=== PATIENT | female | born 1965 | race African-American/Black ===

== ENCOUNTER 2019-12-09 17:40 | Inpatient (IN) | payer OTHER, MEDICAID ==
[~2019-12-09] VITALS: Ht 167.6 cm; Wt 188.0 kg
[2019-12-09] MEDS ORDERED: SODIUM CHLORIDE 0.9% 500 ML IVB ONE (18:31)
[2019-12-09] MEDS ORDERED: ONDANSETRON HCL 4 MG/2 ML VIAL IV ONE (18:45)
[2019-12-09] MEDS ORDERED: HYDROmorphone HCL 2 MG/ML VL IV ONE (18:45)
[2019-12-09 19:21] LABS: Basophils # (auto) 0.1 10 ^3/uL (0-0.2); Basophils % (auto) 0.9 % (0.0-2.0); Eosinophils # (auto) 0.2 10 ^3/uL (0-0.8); Hematocrit 39.3 % (36.0-46.0); Hemoglobin 12.7 g/dL (12.2-16.2); Lymphocytes # (auto) 1.1 10 ^3/uL (0.4-5.4); Lymphocytes % (auto) 14.9 % (10.0-50.0); Mean Corpuscular Hemoglobin 24.6 pg (28.0-32.0); Mean Corpuscular Hgb Conc. 32.4 g/dL (32.0-36.0); Mean Corpuscular Volume 76.1 fL (80.0-100.0); Monocytes # (auto) 0.5 10 ^3/uL (0-1.3); Monocytes % (auto) 6.7 % (0.0-12.0); Neutrophils # (auto) 5.4 10 ^3/uL (1.6-8.6); Neutrophils % (auto) 74.5 % (37.0-80.0); Platelet Count (auto) 276 10^3/uL (140-450); Red Blood Cells 5.17 10^6/uL (4.0-5.20); Red Cell Distribution Width 16.2 % (11.8-14.3); White Blood Cell 7.3 10^3/uL (4.4-10.8)
[2019-12-09 19:41] LABS: Albumin 3.1 g/dL (3.4-5.0); Potassium 3.8 mmol/L (3.5-5.1)
[2019-12-09 19:45] LABS: BUN/Creatinine Ratio 6.7; Bilirubin, Total 0.5 mg/dL (0.2-1.0); Total Protein 6.9 g/dL (6.4-8.2)
[2019-12-09] MEDS ORDERED: NITROGLYCERIN 0.4 MG SL TAB SL PRN (21:45)
[2019-12-09] MEDS ORDERED: ONDANSETRON HCL 4 MG/2 ML VIAL IV PRN (21:45)
[2019-12-09] MEDS ORDERED: DEXTROSE (50%) 50ML SYRG IV PRN (21:45)
[2019-12-09] MEDS ORDERED: ACETAMINOPHEN 325 MG TAB PO PRN (21:45)
[2019-12-09] MEDS ORDERED: MORPHINE SULF INJ 2 MG/ML SYRINGE 1ML IV PRN (21:45)
[2019-12-09] MEDS ORDERED: cloNIDine HCL 0.1 MG TAB PO PRN (21:45)
[2019-12-09] MEDS ORDERED: TEMAZEPAM 15 MG CAP PO PRN (21:45)
[2019-12-09 22:20] LABS: Urine Bacteria NONE SEEN /hpf (None Seen); Urine Blood TRACE /uL (Negative); Urine Mucus FEW (None Seen); Urine Specific Gravity 1.018 (1.001-1.035); Urine WBC 5 /hpf (0 - 5)
[2019-12-09] MEDS: ACCU-CHEK COMFORT CURVE STRIP VI SCH (22:46)
[2019-12-09] MEDS: InsuLIN REG 1unit/0.01ml Soln (100units/ml) SC SCH (22:49)
[2019-12-09] MEDS: MORPHINE SULF INJ 2 MG/ML SYRINGE 1ML IV PRN (22:56)
[2019-12-10] VITALS (9 sets, daily range): BP systolic 134–174; BP diastolic 73–98
--- NOTE | 2019-12-10 01:00 | NUR ---
Telemetry admit from ER ALDO LEE admitted to Telemetry unit after SBAR received. Patient oriented to Candelaria Brown, primary RN, unit, room, bed, and unit policies regarding patient care and visiting hours. Patient now on continuous telemetry monitoring, tele box # [id number] and telemetry reading on arrival to unit is . Patient placed on bedside oxygen, weighed by bedscale and encouraged to call if they need something. All questions and concerns addressed, patient verbalized understanding. Note:
[2019-12-10] MEDS ORDERED: FAMO20TA10 PO (01:56)
[2019-12-10] MEDS ORDERED: GLIP5TAB12 PO (01:56)
[2019-12-10] MEDS ORDERED: ATO40T PO (01:56)
[2019-12-10] MEDS ORDERED: TIOT1AER IN (01:56)
[2019-12-10] MEDS ORDERED: LOSA-39 PO (01:56)
[2019-12-10] MEDS ORDERED: TRIA50TA2 PO (01:56)
[2019-12-10] MEDS ORDERED: GABA100C PO (01:56)
[2019-12-10] MEDS ORDERED: MONT10TA34 PO (01:56)
[2019-12-10] MEDS ORDERED: AMLO5TAB15 PO (01:56)
[2019-12-10] MEDS: HYDROcodone-ACET 5/325MG TAB PO PRN ×3 (02:00→16:08)
[2019-12-10 06:02] LABS: Basophils # (auto) 0.1 10 ^3/uL (0-0.2); Eosinophils # (auto) 0.2 10 ^3/uL (0-0.8); Lymphocytes # (auto) 1.6 10 ^3/uL (0.4-5.4); Mean Corpuscular Hgb Conc. 31.9 g/dL (32.0-36.0); Mean Corpuscular Volume 76.6 fL (80.0-100.0); Monocytes # (auto) 0.6 10 ^3/uL (0-1.3); Monocytes % (auto) 8.2 % (0.0-12.0); Neutrophils # (auto) 4.9 10 ^3/uL (1.6-8.6); Nucleated Red Blood Cells % 0.1 %
[2019-12-10 06:05] LABS: Eosinophils % (auto) 2.8 % (0.0-7.0); Hematocrit 36.9 % (36.0-46.0); Hemoglobin 11.8 g/dL (12.2-16.2); Lymphocytes % (auto) 21.8 % (10.0-50.0); Mean Corpuscular Hemoglobin 24.4 pg (28.0-32.0); Neutrophils % (auto) 66.2 % (37.0-80.0); Platelet Count (auto) 265 10^3/uL (140-450); Red Blood Cells 4.82 10^6/uL (4.0-5.20); Red Cell Distribution Width 16.3 % (11.8-14.3); White Blood Cell 7.4 10^3/uL (4.4-10.8)
[2019-12-10] MEDS: InsuLIN REG 1unit/0.01ml Soln (100units/ml) SC SCH ×4 (06:09→22:31)
[2019-12-10] MEDS: ACCU-CHEK COMFORT CURVE STRIP VI SCH ×4 (06:09→22:30)
[2019-12-10 06:25] LABS: Potassium 3.9 mmol/L (3.5-5.1)
[2019-12-10 06:30] LABS: BUN/Creatinine Ratio 7.6; Calcium 8.7 mg/dL (8.5-10.1)
[2019-12-10] MEDS: MORPHINE SULF INJ 2 MG/ML SYRINGE 1ML IV PRN ×2 (06:57→22:17)
[2019-12-10] MEDS: PANTOPRAZOLE 40 MG TAB PO SCH (09:30)
--- NOTE | 2019-12-10 11:27 | NUR ---
Dr. Quintana at bedside.
--- NOTE | 2019-12-10 13:20 | NUR ---
Noam Huerta came over to see the patient.
--- NOTE | 2019-12-10 14:20 | NUR ---
KENDY from [facility].
[2019-12-10 16:30] LABS: Protein, Urine 222.1 mg/dL (0.0-11.9)
--- NOTE | 2019-12-10 19:32 | NUR ---
Opening Shift Note Received report and assumed care of patient. Patient is awake and alert. No signs or symptoms of distress noted. Instructed patient on plan of care and to call for assistance as needed. Will continue to monitor.
--- NOTE | 2019-12-10 20:41 | NUR ---
Mere Hospitalist Patient requesting "stool softener with a stimulant". Mere hospitalist. Received new orders for Colace 200mg PO BID and senna 8.6mg hsp PRN. Orders read back and verified. Will carry out and continue to monitor. Addendum: 12/11/19 at 0831 by SANTANA BONILLA RN RN Correct order is senna 8.6mg q hsp scheduled, not PRN.
[2019-12-10] MEDS: DOCUSATE SOD 100 MG CAP PO SCH (22:00)
[2019-12-10] MEDS ORDERED: SENNA 8.6 MG TAB PO SCH (22:00)
--- NOTE | 2019-12-10 22:05 | NUR ---
Paged Hospitalist Patient complaining of acid reflux, states she has GERD. Paged hospitalist. Received new orders for Magic Mouthwash 5ml q hsp PRN. Order read back and verified. Will carry out and continue to monitor.
[2019-12-10] MEDS ORDERED: MAGIC MOUTHWASH 55 ML SUSP MT PRN (22:15)
[2019-12-10] MEDS: ONDANSETRON HCL 4 MG/2 ML VIAL IV PRN (22:17)
--- NOTE | 2019-12-10 22:17 | NUR ---
Pain Medication Administration Patient complaining of back pain 02/02. Will administer pain medication per MD order. Will reassess pain level and will continue to monitor.
--- NOTE | 2019-12-10 22:19 | NUR ---
IV removal/insertion 20g IV to the Right Forearm reddened. Discontinued IV with clean technique, catheter tip fully intact. Pressure dressing applied to site. NOTE: Inserted 22g IV to the Left Forearm. Patient tolerated well.
--- NOTE | 2019-12-10 22:47 | NUR ---
Pain Level Reassessment Patient's pain level reassessed to be 8/10. Patient states she has a high tolerance for pain, requesting heat packs. Repositioned for comfort. Will continue to monitor.
[2019-12-11] MEDS: HYDROcodone-ACET 5/325MG TAB PO PRN ×2 (01:04→09:21)
--- NOTE | 2019-12-11 01:04 | NUR ---
Pain Medication Administration Patient complaining of back pain 01/02.Patient requesting Peterson at this time. Educated patient regarding pain medication and pain level. Patient verbalized understanding, continues to request Peterson. Will administer pain medication per MD order. Will reassess pain level and will continue to monitor.
--- NOTE | 2019-12-11 02:04 | NUR ---
Pain Level Reassessment Patient asleep for pain level reassessment. No signs or symptoms of distress noted. Will continue to monitor.
[2019-12-11 05:00] VITALS: BP 149/99
[2019-12-11] MEDS: MORPHINE SULF INJ 2 MG/ML SYRINGE 1ML IV PRN (06:24)
--- NOTE | 2019-12-11 06:24 | NUR ---
Pain Medication Administration Patient complaining of back pain 02/02. Will administer pain medication per MD order. Will reassess pain level and will continue to monitor.
[2019-12-11] MEDS: ONDANSETRON HCL 4 MG/2 ML VIAL IV PRN (06:30)
[2019-12-11] MEDS: ACCU-CHEK COMFORT CURVE STRIP VI SCH ×2 (06:31→12:13)
[2019-12-11] MEDS: InsuLIN REG 1unit/0.01ml Soln (100units/ml) SC SCH ×2 (06:36→12:20)
--- NOTE | 2019-12-11 06:54 | NUR ---
Pain Level Reassessment Patient asleep for pain level reassessment. No signs or symptoms of distress noted. Will continue to monitor.
[2019-12-11 08:00] VITALS: BP 145/81
--- NOTE | 2019-12-11 08:00 | NUR ---
Morning note Patient resting in bed with even and unlabored respirations, no distress noted. Instructed patient on POC, fall precautions and to call for assistance as needed. Patient verbalized understanding. Fall precautions in place with call light within reach.
[2019-12-11] MEDS ORDERED: POLYETHYLENE GLYCOL 17 GM PWDR PO PRN (08:45)
[2019-12-11] MEDS: DOCUSATE SOD 100 MG CAP PO SCH (09:18)
[2019-12-11] MEDS: PANTOPRAZOLE 40 MG TAB PO SCH (09:18)
[2019-12-11 12:00] VITALS: BP 157/75
--- NOTE | 2019-12-11 13:49 | NUR ---
Discharge Discharge education and paperwork provided to the patient per MD order. Patient verbalized understanding. IV removed with aseptic technique, catheter intact. Patient tolerated well, no trauma to site. Telemonitor removed and returned. Patient reports having all personal belongings. Respirations even and unlabored, no distress noted. Patient states "I feel my stomach rumbling like I'm gong to have a bowel movement." Patient provided education on constipation. Patient notified transportation to come to bedside. Instructed patient to notify staff once transportation arrives to hospital. Patient verbalized understanding.
--- NOTE | 2019-12-11 14:25 | NUR ---
Transportation arrived to hospital Patient taken to private vehicle via wheelchair accompanied by staff member. No distress noted.
== END 2019-12-11 14:20 | disposition home or self-care (01) | DRG 683 ==
LOC: ER 17:40 → EDBD 17:40 → TELE 17:41 → TELE-CENTR 23:46
PROVIDERS: ADMIT Nurse Practitioner; ATTEND Family Medicine
DX: N17.9 Acute kidney failure, unspecified (principal); N39.0 Urinary tract infection, site not specified; Z68.43 Body mass index [BMI] 50.0-59.9, adult; F17.210 Nicotine dependence, cigarettes, uncomplicated; N18.4 Chronic kidney disease, stage 4 (severe); M54.9 Dorsalgia, unspecified; N28.89 Other specified disorders of kidney and ureter; E66.01 Morbid (severe) obesity due to excess calories; Z88.0 Allergy status to penicillin; E11.22 Type 2 diabetes mellitus with diabetic chronic kidney disease; J44.9 Chronic obstructive pulmonary disease, unspecified; I12.9 Hypertensive chronic kidney disease with stage 1 through stage 4 chronic kidney disease, or unspecified chronic kidney disease; K42.9 Umbilical hernia without obstruction or gangrene; E78.5 Hyperlipidemia, unspecified; N28.1 Cyst of kidney, acquired; Z80.9 Family history of malignant neoplasm, unspecified; Z82.49 Family history of ischemic heart disease and other diseases of the circulatory system; Z90.721 Acquired absence of ovaries, unilateral; Z90.710 Acquired absence of both cervix and uterus; Z90.49 Acquired absence of other specified parts of digestive tract; Z83.3 Family history of diabetes mellitus; M51.36 Other intervertebral disc degeneration, lumbar region; K59.00 Constipation, unspecified; E11.40 Type 2 diabetes mellitus with diabetic neuropathy, unspecified; Z79.4 Long term (current) use of insulin
CPT/HCPCS: 36415; 74176; 76775; 80048; 80053; 81001; 81025; 82570; 82962; 83690; 84156; 85025; 96374; 96375; G0378; J1815; J2405

== ENCOUNTER → 2025-01-07 | Emergency (ER) | payer OTHER, MEDICAID ==
[~2025-01-07] VITALS: Ht 170.2 cm; Wt 167.3 kg
[~2025-01-07] MED LIST: AMLO1TAB22 PO; ATOR-507 PO; FAMO20TA10 PO; GABA100C PO; GLIP5TAB21 PO; LOSA-535 PO; MONT-8 PO; TIOT1AER IN; TRIA75TA11 PO
[2025-01-07 21:04] VITALS: BP 180/82; PULSE 68; RESP 20; TEMP 98.4; O2SAT 96
== END | disposition left against medical advice (07) ==
LOC: EDUNIT# 20:53 → ER 20:54 → EDBD 20:54
DX: M79.89 Other specified soft tissue disorders (principal); Z53.21 Procedure and treatment not carried out due to patient leaving prior to being seen by health care provider